=== PATIENT | female | born 1990 | race Two or more races ===

== ENCOUNTER 2023-06-05 06:11 | Day surgery (SDC) | payer BC ==
[~2023-06-05] VITALS: Ht 152.4 cm; Wt 58.2 kg
[2023-06-05] VITALS (12 sets, daily range): BP systolic 91–114; BP diastolic 63–77; PULSE 62–80; RESP 12–16; TEMP 97.9; O2SAT 96–100
[2023-06-05] MEDS: DOCUMENT DATE & TIME OF BETA-BLOCKER PO ONE (05:30)
[~2023-06-05 06:11] MED LIST: ACET-1025 PO; AZEL137S4 BOTHNARES; BIRTH CONTROL; CETI10TA14 PO; DEXT25CA PO; FLUO-167 PO; FLUT16SP11 BOTHNARES; IPRA30SP; METO-395 PO; MONT-40 PO; MUPI22OI30; PSEU120T56 PO; VIT B COMPLEX
[2023-06-05] MEDS ORDERED: methylPREDNISolone acetate 80mg/ml inj**IM only ONE (06:57)
[2023-06-05] MEDS ORDERED: oxymetazoline 15 ML nasal spray NS ONE (06:58)
[2023-06-05 07:02] LABS: PREOP URINE HCG NEGATIVE (NEGATIVE)
[2023-06-05] MEDS: famotidine 20mg tablet PO ONE (07:10)
[2023-06-05] MEDS: ringers solution, lacted 1,000 ML IV SCH ×2 (07:11→09:39)
[2023-06-05] MEDS: cefazolin 2gm/D5W 100mL 100 ML IV ONE (07:11)
[2023-06-05] MEDS: oxymetazoline 15 ML nasal spray NS ONE (07:30)
[2023-06-05] MEDS ORDERED: fentaNYL/PF 50MCG/1 ML 2ML syringe ONE (07:49)
[2023-06-05] MEDS ORDERED: midazolam 1 mg/ML 2ml injection ONE (07:49)
[2023-06-05] MEDS ORDERED: meperidine/PF 25mg/ml syringe IV PRN (07:50)
[2023-06-05] MEDS ORDERED: labetalol 20mg/4ml (5mg/ml) syringe IV PRN (07:50)
[2023-06-05] MEDS ORDERED: ondansetron/PF 4mg/2ml inj IV PRN (07:50)
[2023-06-05] MEDS ORDERED: hydrALAZINE 20mg/ml inj. IV PRN (07:50)
[2023-06-05] MEDS ORDERED: proCHLORperazine 10 MG/2 ml inj IV PRN (07:50)
[2023-06-05] MEDS ORDERED: morphine 2 MG/ML inj. syringe IV PRN (07:50)
[2023-06-05] MEDS ORDERED: HYDROmorphone/PF 0.2 MG/ML SYRINGE IV PRN ×2 (07:50)
[2023-06-05] MEDS ORDERED: sevoflurane 250ml liquid IH ONE (08:10)
[2023-06-05] MEDS ORDERED: propofol inj 20 ML IV ONE (08:30)
[2023-06-05] MEDS ORDERED: ondansetron/PF 4mg/2ml inj ONE (08:30)
[2023-06-05] MEDS ORDERED: LIDOcaine 2% (20mg/ml) 5ml vial ONE (08:30)
[2023-06-05] MEDS ORDERED: dexamethasone sod phosphate 4mg/ml inj. ONE (08:30)
[2023-06-05] MEDS: LIDOcaine 1% W/epiNEPHrine 1:100,000 20ml vial ONE ×2 (08:55)
[2023-06-05] MEDS: cocaine 4% topical solution 4ml bottle ONE (08:55)
[2023-06-05] MEDS: gelatin sponge, absorbable (Gelfoam 100) sponge TP ONE (08:55)
[2023-06-05] MEDS: mupirocin 2% ointment 22GM ONE (08:56)
[2023-06-05] MEDS ORDERED: ePHEDrine 50MG/ML INJ. ONE (09:20)
[2023-06-05] MEDS ORDERED: 0.9 % SODIUM CHLORIDE 10 ML VIAL ONE (09:20)
[2023-06-05] MEDS: morphine 4 MG/ML inj SYRINge IV PRN (09:34)
[2023-06-05] MEDS: acetaminophen 1,000mg/100ml IV 100 ML IV ONE (09:34)
[2023-06-05] MEDS: salt irrigation nasal spray 45 ML SPRAY NS PRN (10:05)
== END 2023-06-05 10:59 | disposition home or self-care (01) ==
LOC: PAS 06:11
PROVIDERS: ATTEND Otolaryngology
DX: J34.2 Deviated nasal septum (principal); J34.3 Hypertrophy of nasal turbinates; R00.1 Bradycardia, unspecified; I20.9 Angina pectoris, unspecified; F32.A Depression, unspecified; F43.10 Post-traumatic stress disorder, unspecified; Z98.818 Other dental procedure status
CPT/HCPCS: 30140; 30520; 81025; 82948; 93005; A6402; J0131; J0690; J1100; J2250; J2270; J2405; J2704; J3010; J3490; J7030; J7120; Z7506; Z7508; Z7512; A4618; A6449; A7000; J1040